=== PATIENT | female | born 1960 | race Caucasian/White ===

== ENCOUNTER 2019-07-27 01:59 | Emergency (ER) | payer OTHER ==
[~2019-07-27] VITALS: Ht 165.1 cm; Wt 95.2 kg
--- NOTE | ~2019-07-27 | EKG ---
[facility] [address] [place], [place] [address] Draft EK completed, results pending confirmation PATIENT NAME: TRISTAN LANGLEY Electrocardiogram DATE OF : 62 PHYSICIAN: PRELIMINARY REPORT #: [id number] REPORT IS CONFIDENTIAL AND NOT TO BE RELEASED WITHOUT AUTHORIZATION
--- OUTSIDE RECORDS SUMMARY | ~2019-07-27 | XMS | Clinical Summary ---
Demographics + + + | Address | [address] | | | [place] [address] | + + + | Home Phone | | + + + | Preferred Language | Unknown | + + + | Marital Status | | + + + | Roman Catholic Affiliation | Unknown | + + + | Race | Unknown | + + + | Ethnic Group | Unknown | + + + Author + + + | Author | [facility] | | | and [place] | + + + | Organization | [facility] | | | and [place] | + + + | Address | Unknown | + + + | Phone | Unavailable | + + + Support + + +---------+ + | Name | Relationship | Address | Phone | + + +---------+ + | Anirudh Diana | ECON | Unknown | | + + +---------+ + Care Team Providers + +------+ + | Care Volunteer Patient Representative Name | Role | Phone | + +------+ + | Aristeo Gonsalez MD | PCP | | + +------+ + Allergies No Known Allergies Medications + + + +---------+------+------+-------+ | Medication | Sig | Dispensed | Refills | Star | End | Statu | | | | | | t | Date | s | | | | | | Date | | | + + + +---------+------+------+-------+ | lisinopril | Take 10 mg by mouth | | 0 | | | Activ | | (PRINIVIL, ZESTRIL) | Daily. | | | | | e | | 10 mg tablet | | | | | | | + + + +---------+------+------+-------+ Active Problems Not on file Social History + +-------+ +--------+------+ | Tobacco Use | Types | Packs/Day | Years | Date | | | | | Used | | + +-------+ +--------+------+ | Never Smoker | | | | | + +-------+ +--------+------+ + +---+---+---+ | Smokeless Tobacco: | | | | | Never Used | | | | + +---+---+---+ + + +---------+ + | Alcohol Use | Drinks/Week | oz/Week | Comments | + + +---------+ + | No | | | | + + +---------+ + + + + | Sex Assigned at | Date Recorded | | | | + + + | Not on file | | + + + + + + + | Job Start Date | Occupation | Industry | + + + + | Not on file | Not on file | Not on file | + + + + + + + + | Travel History | Travel Start | Travel End | + + + + + + | No recent travel history available. | + + Last Filed Vital Signs + + + + + | Vital Sign | Reading | Time Taken | Comments | + + + + + | Blood Pressure | 144/79 | 11/12/2015 8:38 PM | | | | | PDT | | + + + + + | Pulse | 100 | 11/12/2015 8:38 PM | | | | | PDT | | + + + + + | Temperature | 36.7 C (98.1 F) | 11/12/2015 8:38 PM | | | | | PDT | | + + + + + | Respiratory Rate | 16 | 11/12/2015 8:38 PM | | | | | PDT | | + + + + + | Oxygen Saturation | 100% | 11/12/2015 8:38 PM | | | | | PDT | | + + + + + | Inhaled Oxygen | - | - | | | Concentration | | | | + + + + + | Weight | 79.4 kg (175 lb) | 11/12/2015 8:38 PM | | | | | PDT | | + + + + + | Height | 162.6 cm (5' 4.02") | 11/12/2015 8:38 PM | | | | | PDT | | + + + + + | Body Mass Index | 30.02 | 11/12/2015 8:38 PM | | | | | PDT | | + + + + + Plan of Treatment + + + + + | Health Maintenance | Due Date | Last Done | Comments | + + + + + | Vaccine: | | | | | Dtap/Tdap/Td (1 - | 2 | | | | Tdap) | | | | + + + + + | Cervical Cancer | | | | | Screening (Pap) | 1 | | | + + + + + | Vaccine: Zoster (1 | | | | | of 2) | 1 | | | + + + + + | Breast Cancer | | | | | Screening | 6 | | | + + + + + | Vaccine: Influenza | | | | | (Season Ended) | 0 | | | + + + + + Results Not on filefrom Last 3 Months Insurance + +--------+ +--------+-------+---------+------+ | Payer | Benefi | Subscriber | Effect | Phone | Address | Type | | | t Plan | ID | ray | | | | | | / | | Dates | | | | | | Group | | | | | | + +--------+ +--------+-------+---------+------+ | [employer] | [place] | [id number] | | | | PPO | | [place] TR | EMP | | 016-Pr | | | | | | ELCTRC | | esent | | | | | | L WRKS | | | | | | | | TR | | | | | | | | AETNA | | | | | | + +--------+ +--------+-------+---------+------+ + +--------+ +--------+ + + | Guarantor Name | Accoun | Relation to | Date | Phone | Billing Address | | | t Type | Patient | of | | | | | | | | | | + +--------+ +--------+ + + | Merissa Diana | Person | Self | [birth year] | [address] | | | al/Fam | | 1960 | [phone] | [place], | | | babatunde | | | [address] (Home) | [place] [address] | + +--------+ +--------+ + + Advance Directives + + + + + | Type | Date Recorded | Patient | Explanation | | | | Set Designer | | + + + + + | Power of | | | | | Valuation Consultant | | | | + + + + + | Advance | 11/12/2015 9:32 | | | | Directive | PM | | | + + + + +
--- OUTSIDE RECORDS SUMMARY | ~2019-07-27 | XMS | Encounter Summary ---
Demographics + + + | Address | [address] | | | [place] [address] | + + + | Home Phone | | + + + | Preferred Language | Unknown | + + + | Marital Status | | + + + | Yazdanism Affiliation | Unknown | + + + | Race | Unknown | + + + | Ethnic Group | Unknown | + + + Author + + + | Author | [facility] | | | and [place] | + + + | Organization | [facility] | | | and [place] | [...] Team Providers + +------+ + | Care Potato Inspector Name | Role | Phone | + +------+ + | Aristeo Gonsalez MD | PCP | | + +------+ + Reason for Visit + + + | Reason | Comments | + + + | Head Injury | | + + + | Syncope | | + + + Encounter Details +--------+ + + + + | Date | Type | Department | Care Team | Description | +--------+ + + + + | 11/11/ | [facility] | [facility] | [place], | Orthostatic syncope | | 2016 | | [facility] | Xu Hercules MD [address] | (Primary Dx); Scalp | | | | CENTER [address] | [address] [place] | hematoma, initial | | | | [place] | [place] [address] | encounter | | | | [address] | [phone] | | | | | [phone] | | | +--------+ + + + + Social History + +-------+ +--------+------+ | Tobacco [...] recent travel history available. | + + documented as of this encounter Last Filed Vital Signs + + + [...] | | + + + + + documented in this encounter Discharge Instructions Instructions Xu Escudero MD - 11/12/2015Home and rest. Drink plenty of fluids. Return for worsening symptoms or any other concerns. AttachmentsThe following attachments cannot be sent through Care Everywhere.HYPOTENSION, [place] THOSTATIC (SOLOMON ISLANDER)documented in this encounter Medications at Time of Discharge + + + +---------+--------+ + | Medication | Sig | Dispensed | Refills | Start | End Date | | | | | | Date | | + + + +---------+--------+ + | lisinopril | Take 10 mg by mouth | | 0 | | | | (PRINIVIL, ZESTRIL) | Daily. | | | | | | 10 mg tablet | | | | | | + + + +---------+--------+ + documented as of this encounter Plan of Treatment Not on filedocumented as of this encounter Procedures + +--------+ + + + | Procedure Name | Priori | Date/Time | Associated Diagnosis | Comments | | | ty | | | | + +--------+ + + + | ECG 12 LEAD | STAT | 11/12/2015 | | Results for this | | | | 9:22 PM | | procedure are in the | | | | PDT | | results section. | + +--------+ + + + | CT HEAD WO CONTRAST | STAT | 11/12/2015 | | Results for this | | | | 9:13 PM | | procedure are in the | | | | PDT | | results section. | + +--------+ + + + documented in this encounter Results ECG 12 lead (11/12/2015 9:22 PM PDT) + + + + + + | Component | Value | Ref Range | Performed | Pathologist | | | | | At | Signature | + + + + + + | VENTRICULAR | 94 | BPM | [facility] | | | RATE EKG | | | | | + + + + + + | ATRIAL RATE | 94 | BPM | [facility] | | + + + + + + | P-R | 154 | ms | [facility] | | | INTERVAL | | | | | + + + + + + | QRS | 98 | ms | [facility] | | | DURATION | | | | | + + + + + + | Q-T | 372 | ms | [facility] | | | INTERVAL | | | | | + + + + + + | Q-T | 465 | ms | [facility] | | | INTERVAL | | | | | | (CORRECTED) | | | | | + + + + + + | P WAVE AXIS | 62 | degrees | [facility] | | + + + + + + | QRS AXIS | -8 | degrees | [facility] | | + + + + + + | T AXIS | 17 | degrees | [facility] | | + + + + + + | INTERPRETAT | Normal sinus | | [facility] | | | ION TEXT | rhythmInferior infarct , | | | | | | age | | | | | | undeterminedAbnormal | | | | | | ECGNo previous ECGs | | | | | | availableConfirmed by | | | | | | PADMA ARMSTRONG MD | | | | | | ([id number]) on 11/15/2015 | | | | | | 7:20:03 AM | | | | + + + + + + + + | Specimen | + + | | + + + + + | Narrative | Performed At | + + + | | | + + + + +---------+ + + | Performing | Address | City/State/Zipcode | Phone Number | | Organization | | | | + +---------+ + + | [facility] | | | | + +---------+ + + CT Head wo Contrast (11/12/2015 9:13 PM PDT) + + | Specimen | + + | | + + + + + | Narrative | Performed At | + + + | CT HEAD WO CONTRAST 11/12/2015 8:56 PM HISTORY: Head injury with | [facility] | | syncope. COMPARISON: None. PROTOCOL: Axial images of the head | | | were obtained along with coronal and sagittal reformations. | | | FINDINGS: The brain parenchyma demonstrates no evidence for acute | | | infarct, mass lesion, or hemorrhage. The brainstem is unremarkable. | | | The cerebellum is normal. The pituitary gland is grossly normal. | | | The ventricles, cisterns, and sulci are of normal size and shape. | | | Limited evaluation of the vasculature demonstrates no acute findings. | | | The orbits show no acute findings. Paranasal sinuses are clear. | | | Mastoid air cells are normal. Mild left occipital scalp soft | | | tissue swelling and hematoma are seen. Calvarium, temporal bones, and | | | skull base structures are unremarkable. IMPRESSION - No acute | | | intracranial findings. Mild left occipital scalp soft tissue | | | swelling and hematoma. A preliminary report was sent by [employer] | | | Imaging on 11/12/2015 at 9:21 PM with no significant discrepancy. | | | Dictated and Signed by: Pop Quinn MD Electronically signed: | | | 11/13/2015 11:11 AM | | + + + + + | Procedure Note | + + | Angel, Rad Results In - 11/13/2015 11:[address] HEAD WO CONTRAST 11/12/2015 8:56 PM | | | | HISTORY: Head injury with syncope. | | | | COMPARISON: None. | | | | PROTOCOL: Axial images of the head were obtained along with coronal and sagittal | | reformations. | | | | FINDINGS: | | The brain parenchyma demonstrates no evidence for acute infarct, mass lesion, or | | hemorrhage. The brainstem is unremarkable. The cerebellum is normal. The | | pituitary gland is grossly normal. | | | | The ventricles, cisterns, and sulci are of normal size and shape. | | | | Limited evaluation of the vasculature demonstrates no acute findings. | | | | The orbits show no acute findings. Paranasal sinuses are clear. Mastoid air | | cells are normal. | | | | Mild left occipital scalp soft tissue swelling and hematoma are seen. Calvarium, | | temporal bones, and skull base structures are unremarkable. | | | | IMPRESSION - | | No acute intracranial findings. | | | | Mild left occipital scalp soft tissue swelling and hematoma. | | | | A preliminary report was sent by [employer] on 11/12/2015 at 9:21 PM with no | | significant discrepancy. | | | | Dictated and Signed by: Pop Quinn MD | | Electronically signed: 11/13/2015 11:11 AM | + + + +---------+ + + | Performing | Address | City/State/Zipcode | Phone Number | | Organization | | | | + +---------+ + + | [facility] | | | | + +---------+ + + documented in this encounter Visit Diagnoses + + | Diagnosis | + + | Orthostatic syncope - Primary Syncope and collapse | + + | Scalp hematoma, initial encounter | + + documented in this encounter
--- OUTSIDE RECORDS SUMMARY | ~2019-07-27 | XMS | Clinical Summary ---
Demographics + + + | Address | [address] | | | [place] [address] | + + + | Home Phone | | + + + | Preferred Language | Unknown | + + + | Marital Status | | + + + | Moravian Affiliation | Unknown | + + + | Race | Unknown | + + + | Ethnic Group | Unknown | + + + Author + + + | Author | [facility] | | | and [place] | + + + | Organization | [facility] | | | [...] Team Providers + +------+ + | Care Second Ride Fare Collector Name | Role | Phone | + [...] | [employer] | [place] | [id number] | | | | PPO | | [...] Person | Self | [birth year] | | [address] | | | al/Fam | | 1960 | [phone] | [place], | | | babatunde | | | [address] (Home) | [place] [address] | + +--------+ +--------+ + + Advance Directives + + + + + | Type | Date Recorded | Patient | Explanation | | | | Screen Printing Machine Operator Helper | | + + + + + | Power of | | | | | Chief Human Resources Officer | | | | + + + + + | Advance | 11/12/2015 9:32 | | | | Directive | PM | | | + + + + +
--- OUTSIDE RECORDS SUMMARY | ~2019-07-27 | XMS | Encounter Summary ---
Demographics + + + | Address | [address] | | | [place] [address] | + + + | Home Phone | | + + + | Preferred Language | Unknown | + + + | Marital Status | | + + + | Holiness Affiliation | Unknown | + + + | Race | Unknown | + + + | Ethnic Group | Unknown | + + + Author + + + | Author | [facility] | | | and [place] | + + + | Organization | [facility] | | | and [place] | + + + | Address | Unknown | + + + | Phone | Unavailable | + + + Support + + +---------+ + | Name | Relationship | Address | Phone | + + +---------+ + | Anirudh Nidacharlene | ECON | Unknown | | + + +---------+ + Care Team Providers + +------+ + | Care Conveyor System Operator Name | Role | Phone | + +------+ + PCP | Unavailable | + +------+ + Encounter Details +--------+ + + + + | Date | Type | Department | Care Team | Description | +--------+ + + + + | 11/20/ | Hospital | [facility] | | | | 1997 | Encounter | MED CTR GENERIC OP | | | | | | CONV DEPT [address] | | | | | | [place], | | | | | | [place] [address] | | | | | | [phone] | | | +--------+ + + + + Social History + +-------+ +--------+------+ | Tobacco Use | Types | Packs/Day | Years | Date | | | | | Used | | + +-------+ +--------+------+ | Never Assessed | | | | | + +-------+ +--------+------+ + + + | Sex Assigned at [...] + + documented as of this encounter Plan of Treatment Not on filedocumented as of this encounter Visit Diagnoses Not on filedocumented in this encounter"
--- OUTSIDE RECORDS SUMMARY | ~2019-07-27 | XMS | Encounter Summary ---
Demographics + + + | Address | [address] | | | [place] [address] | + + + | Home Phone | | + + + | Preferred Language | Unknown | + + + | Marital Status | | + + + | Hindu Affiliation | Unknown | + + + | Race | Unknown | + + + | Ethnic Group | Unknown | + + + Author + + + | Author | [facility] | | | and [place] | + + + | Organization | [facility] | | | and [place] | [...] Team Providers + +------+ + | Care Market Research Interviewer Name | Role | Phone | + [...] + + | 11/11/ | [facility] | [facility] | [place], | Orthostatic syncope | | 2016 | | [facility] EM[facility] | Xu Hercules MD [address] | (Primary Dx); Scalp | | | | CENTER [address] | [address] [place] | hematoma, initial | | | | [place] | [place] [address] | encounter | | | | [address] | [phone] | | | | | [phone] | | | +--------+ + + + [...] be sent through Care Everywhere.HYPOTENSION, OR THOSTATIC (RWANDAN)documented in this encounter Medications at Time of [...] MD | | | | | | ([id number]) on 11/15/2015 | | | | | [...] hematoma. A preliminary report was sent by [employer] | | | Imaging on 11/12/2015 at [...] | A preliminary report was sent by [employer] on 11/12/2015 at 9:21 PM with no [...]
--- OUTSIDE RECORDS SUMMARY | ~2019-07-27 | XMS | Encounter Summary ---
Demographics + + + | Address | [address] | | | [place] [address] | + + + | Home Phone | | + + + | Preferred Language | Unknown | + + + | Marital Status | | + + + | Latter Day Affiliation | Unknown | + + + | Race | Unknown | + + + | Ethnic Group | Unknown | + + + Author + + + | Author | [facility] | | | and [place] | + + + | Organization | [facility] | | | and [place] [...] Team Providers + +------+ + | Care Final Assembly Worker Name | Role | Phone | + +------+ + PCP | Unavailable | + +------+ + Encounter Details +--------+ + + + + | Date | Type | Department | Care Team | Description | +--------+ + + + + | 11/20/ | Hospital | [facility] | | | | 1997 | Encounter | MED CTR GENERIC OP | | | | | | CONV DEPT [address] | | | | | | [place], | | | | | | [place] [address] | | | | | | [phone] | | | +--------+ + + + [...]
[2019-07-27] MEDS ORDERED: LISINOPRIL10 MG PO (02:07)
[2019-07-27] MEDS ORDERED: OMEPRAZOLE20 MG PO (03:23)
== END 2019-07-27 03:40 | disposition home or self-care (01) ==
LOC: ED 01:59
DX: R10.13 Epigastric pain (principal); R07.89 Other chest pain; I10 Essential (primary) hypertension; Z79.899 Other long term (current) drug therapy
CPT/HCPCS: 71045; 80053; 83735; 84484; 85025; 93005; 93010; 96374; 96375; 99285-25; C9113; J2405